=== PATIENT | male | born 1960 | race Caucasian/White ===

== ENCOUNTER 2016-07-25 15:19 | Emergency (ER) | payer OTHER ==
[2016-07-25 15:45] VITALS: RESP 20; TEMP 98.2; O2SAT 94
--- NOTE | 2016-07-25 15:49 | UCPHY ---
H & P Time Seen by Provider: 07/25/16 15:40 Patient Type: New HPI/ROS: CHIEF COMPLAINT: Bronchitis HISTORY OF PRESENT ILLNESS: 55-year-old male presents to Urgent Care complaining of a chest infection. Patient reports he has had a cough for the last 4 days. Complaining by mild nasal congestion. He reports he has a history of developing bronchitis whenever he gets a cold. He is traveling for work and is concerned that his symptoms are not improving as expected. No documented fever. Cough is productive of thick, yellow sputum. Also reports malaise. No fever, chills, chest pain, shortness of breath, palpitations, vomiting, diarrhea, urinary complaints, headache, lightheadedness. REVIEW OF SYSTEMS: Aside from elements discussed in the HPI, a comprehensive 10-point review of systems was reviewed and is negative. PAST MEDICAL HISTORY: hypertension SOCIAL HISTORY: Nonsmoker VITAL SIGNS: see nurse's notes. GENERAL: Well-developed, well-nourished, in no acute distress. HEENT: Atraumatic Eyes: PERRL, EOMI, no conjunctival injection. Ears: TM clear bilaterally. Nose: No discharge. Mouth: moist mucous membranes. Pharynx: no erythema, no exudates, no swelling, no abscess. Uvula is midline. NECK: Supple, no adenopathy, no meningismus, no tenderness. Negative Kernig's and Brudzinski's. LUNGS: Slightly coarse breath sounds. Deep inspiration results in coughing. No wheezes, rhonchi or rales. CARDIAC: Regular rate and rhythm, no rubs, murmurs or gallops. ABDOMEN: Soft, nontender, bowel sounds normal. BACK: No CVA tenderness. EXTREMITIES: Normal, no edema, FROM. NEURO: Alert and oriented, grossly nonfocal. SKIN: Warm and dry, no rash. PSYCHIATRIC: Normal mentation, no agitation. Constitutional: Initial Vital Signs Temperature (C) 36.8 C 07/25/16 15:42 Heart Rate 82 07/25/16 15:42 Respiratory Rate 20 07/25/16 15:42 Blood Pressure 137/103 H 07/25/16 15:42 O2 Sat (%) 94 07/25/16 15:42 O2 Delivery Mode Room Air Allergies/Adverse Reactions: No Known Allergies Allergy (Unverified 07/25/16 15:39) Home Medications: Medication Instructions Recorded AZITHROMYCIN [Z-PACK] 250 mg PO DAILY #6 tab 07/25/16 Albuterol [Proventil Inhaler] 1 - 2 puffs IH Q4H #1 mdi 07/25/16 Lisinopril 07/25/16 Medical Decision Making ED Course/Re-evaluation: Suspect bronchitis. Patient is advised regarding fluids, [id number] medications to control symptoms including Flonase nasal spray, and was given a prescription for albuterol meter dose inhaler. Azithromycin was prescribed to use as needed if his symptoms continue. Differential Diagnosis: Differential diagnosis for the patient's cough was considered including but not limited to viral versus bacterial bronchitis, asthma, COPD, pulmonary emboli, upper respiratory infection, lower respiratory infection, and bronchospasm. Departure - Departure Disposition: Home, Routine, Self-Care Clinical Impression: Cough Acute bronchitis Qualifiers: Bronchitis organism: unspecified organism Qualifier Code: (J20.9) Acute bronchitis, unspecified Condition: Good Instructions: Acute Bronchitis (ED), Bronchospasm (ED) Additional Instructions: Please obtain Flonase at the [facility] pharmacy. Use as directed. You been given a prescription for an albuterol meter dose inhaler. Please use as directed. 2-3 puffs 4 to 6 times a day to control cough. This will be especially helpful at bedtime. Take antibiotic as directed. Azithromycin 500 mg on day 1, then 250 mg on days 2 through 5. Seek care urgently if you're symptoms are worsening despite the above treatment , if you develop shortness of breath, if you're unable to drink fluids secondary to throat pain or other issues, to have vomiting, diarrhea, or other concerns. Consider obtaining zinc cold therapy was I can from the [facility] store. Referrals: OUT OF STATE,. [Primary Care Provider] - As per Instructions Prescriptions: Albuterol [Proventil Inhaler] 1 - 2 puffs IH Q4H #1 mdi AZITHROMYCIN [Z-PACK] 250 mg PO DAILY #6 tab - PQRS PQRS Measurement: Not applicable
[2016-07-25 16:06] VITALS: BP 134/95; PULSE 86
== END 2016-07-25 16:01 | disposition home or self-care (01) ==
LOC: CED 15:19
DX: J20.9 Acute bronchitis, unspecified (principal); I10 Essential (primary) hypertension
CPT/HCPCS: G0463-PO